=== PATIENT | female | born 1985 | race Caucasian/White ===

== ENCOUNTER 2017-02-03 16:29 | Emergency (ER) | payer OTHER ==
[~2017-02-03] VITALS: Ht 157.5 cm; Wt 60.9 kg
[2017-02-03 16:44] LABS: HEMATOCRIT 34.8 % (36.0-46.0); MCH 30.4 PG (29.0-34.0); MCHC 35.3 G/DL (30.0-36.0); MCV 86.1 FL (83-99); MEAN PLAT.VOLUME 10.4 uM^3 (9.5-12.4); PLATELET COUNT 300 K/uL (156-360); RBC DIS.WIDTH-CV 11.9 % (11.8-14.6); RBC DIS.WIDTH-SD 37.5 % (39-53); RED BLOOD COUNT 4.04 M/uL (3.80-5.20)
[2017-02-03 20:28] LABS: ADD MIUA? YES; BILIRUBIN NEGATIVE; BLOOD LARGE; GLUCOSE (STRIP) NEGATIVE; KETONES NEGATIVE; LEUKOCYTES NEGATIVE; NITRITE NEGATIVE; PROTEIN (STRIP) 100; UROBILINOGEN 0.2 MG/DL (0.2-1.0)
[2017-02-03 20:31] LABS: COLOR RED ((YELLOW))
[2017-02-03 20:47] LABS: BACTERIA RARE /HPF; EPITHELIAL CELLS NONE SEEN /HPF; MUCUS NONE SEEN /LPF; RED BLOOD CELLS TNTC /HPF (0-5); UCUL ADDED? YES; WHITE BLOOD CELLS 0-5 /HPF (0-5)
[2017-02-03 21:02] VITALS: BP 146/94
== END 2017-02-03 21:25 | disposition home or self-care (01) ==
LOC: EME 16:29
DX: O20.0 Threatened abortion (principal); Z3A.01 Less than 8 weeks gestation of pregnancy
CPT/HCPCS: 76801; 81003; 84702; 85027; 87086; 99281; 99283

== ENCOUNTER → 2017-02-03 | Outpatient (CLI) | payer OTHER ==
[~2017-02-03] VITALS: Ht 157.5 cm; Wt 60.4 kg
[~2017-02-03] MED LIST: CELEXA40 MG PO; NOHOMEMEDS; PRENATAL VITAM1 EA10 PO; VITAMIN D-32000 UNI2 PO
[2017-02-03 10:52] VITALS: BP 110/59
== END | disposition home or self-care (01) ==
LOC: IVINF 09:30
DX: Z31.82 Encounter for Rh incompatibility status (principal); Z3A.00 Weeks of gestation of pregnancy not specified; O20.0 Threatened abortion
CPT/HCPCS: J2790

== ENCOUNTER → 2017-02-05 | Outpatient (CLI) | payer OTHER | END | disposition home or self-care (01) | LOC: LAB 12:01 | DX: O20.0 Threatened abortion (principal) | CPT/HCPCS: 84702 ==

== ENCOUNTER 2017-04-09 20:19 | Emergency (ER) | payer OTHER ==
[~2017-04-09] VITALS: Ht 157.5 cm; Wt 63.4 kg
[2017-04-09] MEDS ORDERED: PERCOCET 5/31 TABLET PO (23:00)
[2017-04-10 02:01] VITALS: BP 120/77
== END 2017-04-10 02:00 | disposition home or self-care (01) ==
LOC: EME 20:19
PROC: 2W3RX1Z Immobilization of Left Lower Leg using Splint (ICD-10-PCS; principal; 2017-04-09)
DX: S82.832A Other fracture of upper and lower end of left fibula, initial encounter for closed fracture (principal); S00.93XA Contusion of unspecified part of head, initial encounter; V00.321A Fall from snow-skis, initial encounter; Y93.23 Activity, snow (alpine) (downhill) skiing, snowboarding, sledding, tobogganing and snow tubing
CPT/HCPCS: 70450; 73610; 99281; 99285; J2270

== ENCOUNTER 2017-06-09 21:57 | Emergency (ER) | payer OTHER ==
[~2017-06-09] VITALS: Ht 157.5 cm; Wt 62.4 kg
[~2017-06-09 21:57] MED LIST changes: +PERCOCET 5/31 TABLET PO
[2017-06-09] MEDS ORDERED: ZOFRAN ODT4 MG PO (23:03)
[2017-06-09] MEDS ORDERED: ZITHROMAX500 MG PO (23:03)
[2017-06-10 00:14] VITALS: BP 125/79
== END 2017-06-10 00:16 | disposition home or self-care (01) ==
LOC: EME 21:57
DX: J02.0 Streptococcal pharyngitis (principal); B34.9 Viral infection, unspecified; Z88.0 Allergy status to penicillin
CPT/HCPCS: 99281; 99285; J1885; J2405; J7030

== ENCOUNTER 2017-10-16 14:05 | Emergency (ER) | payer OTHER ==
[~2017-10-16] VITALS: Ht 160 cm; Wt 54.5 kg
[~2017-10-16 14:05] MED LIST changes: +ZITHROMAX500 MG PO; +ZOFRAN ODT4 MG PO
[2017-10-16 15:41] VITALS: BP 113/78
== END 2017-10-16 15:47 | disposition home or self-care (01) ==
LOC: EME 14:05
DX: S09.90XA Unspecified injury of head, initial encounter (principal); Y04.0XXA Assault by unarmed brawl or fight, initial encounter; Y92.238 Other place in hospital as the place of occurrence of the external cause; Y99.0 Civilian activity done for income or pay
CPT/HCPCS: 99281; 99283